=== PATIENT | male | born 1990 | race Two or more races ===

== ENCOUNTER 2023-06-01 11:18 | Emergency (ER) | payer SELFPAY ==
[2023-06-01 11:29] VITALS: BP 128/89; PULSE 89; RESP 19; TEMP 36.6; O2SAT 97; BMI 33.9
--- NOTE | 2023-06-01 11:30 | ED_ITS ---
HPI - Skin/Abscess/Foreign Bdy General Chief complaint: General Medical Stated complaint: poison ronit Time Seen by Provider: 06/01/23 11:37 Source: patient and RN notes reviewed Mode of arrival: ambulatory Limitations: no limitations History of Present Illness HPI narrative: This is a [id number] presenting to the emergency department with complaints of itchy rash on BL arms x several days. He states that he was working outside and believes he became in contact with poison ronit. Denies any fevers, chills, difficulty breathing or swallowing. Denies taking any medications at home to tx his symptoms. No other complaints or concerns at this time. MD complaint: rash Onset (ago): day(s) Location: LUE and RUE Severity: moderate Quality: pruritic Pain Consistency: constant Relieving factors: none Exacerbating factors: none Context: none Associated symptoms: denies other symptoms Treatments prior to arrival: none Related Data Previous Rx's Medication Instructions Recorded hydrocortisone 1 % topical cream 1 appl topical TID PRN itching 06/01/23 #28.35 grams prednisone 20 mg tablet 40 mg (2 x 20 mg) PO DAILY 5 days 06/01/23 #10 tabs Allergies Allergy/AdvReac Type Severity Reaction Status Date / Time No Known Allergies Allergy Verified 06/01/23 11:29 Review of Systems Review of Systems: Yes all other systems are reviewed and are negative Constitutional: Constitutional: Reports as per [facility] Social History Social History Advance Directives: No Physical Exam Vital Signs: Vital Signs: Last Vital Signs Temp 98 F 06/01/23 11:29 Pulse 89 06/01/23 11:29 Resp 19 06/01/23 11:29 BP 128/89 06/01/23 11:29 Pulse Ox 97 06/01/23 11:29 BMI result Body Mass Index 33.9 Const: General: cooperative, comfortable and no acute distress Orientation/consciousness: patient oriented x3 Limitations: no limitations HEENT: Head: Yes normal to inspection, Yes normocephalic and Yes atraumatic Ears: hearing grossly normal bilaterally General nose exam: Normal external nose present Face and sinus: Yes normal facial exam Mouth: Normal oral and palatal mucosa present, oropharynx normal and moist mucous membranes Throat: Yes posterior oropharynx normal Eyes: General: appearance normal, both eyes and all related structures Eyelids: Yes eyelids normal Conjunctivae: conjunctivae normal Sclerae: sclerae normal Pupils: Equal, round and reactive pupils present EOM: EOMs intact bilaterally Neck: Neck: Yes normal visual inspection, Yes full ROM and Yes no lymphadenopathy Lymphatic: no lymphadenopathy noted Chest: Chest palpation & inspection: normal inspection of the chest Resp: Effort & Inspection: normal respiratory effort and able to speak in complete sentences Auscultation: clear to auscultation bilaterally, no crackles, no rales, no rhonchi and no wheezes Cardio: Rate: regular rate Rhythm: regular rhythm Heart sounds: S1 normal heart sound present and S2 normal heart sound present GI: Inspection: Yes normal to inspection Skin: Other: Bilateral arms with macular papular rash with surrounding excoriations noted. No erythema or induration noted. General skin exam: no rashes or lesions noted Trauma: no lacerations or abrasions Wounds: no wounds Neuro: General: patient oriented x3 and moves all extremities Cranial nerves: Yes Equal, round and reactive pupils present Extrem: General: Yes normal to inspection Right upper extremity: normal to inspection Left upper extremity: normal to inspection Right lower extremity: normal to inspection Left lower extremity: normal to inspection Medical Decision Making Medical Decision Making [facility] Narrative: 33 y/o M presenting to the ER with complaints of itchy rash to BL arms for the last several days. On arrival, VSS. Airway patent, Lungs CTAB. Exam with maculopapular rash consistent with contact dermatitis likely from poison ronit. DDX including cellulitis, atopic dermatitis, less likely TENS, SJS given presentation. Will tx with course of prednisone and hydrocortisone cream. Given return precautions. Pt understands and agrees with plan. Stable for D/C. Differential Diagnosis Differential Diagnoses: The differential diagnosis associated with the presen tation includes see above Admission/Observation Consideration of admission/observation: Escalation of care including admission /observation considered Lab Data [facility] Lab Attestation statement: I reviewed the patient's lab results. Discharge Plan Discharge Clinical Impression: Poison ronit dermatitis Patient Disposition: Home, Self-Care Instructions: Poison Ronit (ED) Additional Instructions: Please take prescribed medication as directed. Finish the entire course. You may also apply topical hydrocortisone cream as needed. Benadryl can also help with the itching if this is keep p.o. up at night. Please be advised that this can cause drowsiness. If any new or worsening symptoms occur including but not limited to chest pain, shortness of breath, difficulty swallowing, please return for re-evaluation. Please wash all clothing and shoes that would of been in contact with the poison ronit as yourself. Prescriptions: New prednisone 20 mg tablet 40 mg PO DAILY 5 Days Qty: 10 0RF hydrocortisone 1 % cream 1 appl topical TID PRN (Reason: itching) Qty: 28.35 0RF Interventions: ED Discharge Assessment Last Done: 06/01/23 11:49 Discharge Date/Time: 06/01/23 11:49
== END 2023-06-01 11:49 | disposition home or self-care (01) ==
PROVIDERS: Emergency Provider Emergency Medicine
DX: L23.7 Allergic contact dermatitis due to plants, except food (principal)
CPT/HCPCS: 99282; 99283